=== PATIENT | female | born 1950 | race Caucasian/White ===

== ENCOUNTER → 2017-07-01 | Day surgery (SDC) | payer OTHER ==
[2017-06-09 11:19] VITALS: Ht 157.5 cm; Wt 91.8 kg
[~2017-07-01] VITALS: Ht 157.5 cm; Wt 91.8 kg
[~2017-07-01] MED LIST: ASCA500 PO; BUPR-79 PO; CALC600T9 PO; CHOL1000 PO; LIDOCAINE HCL 2% 2 ML VIAL (20MG/ML) ONE; METH-736 PO; MONT1TAB3 PO; MULT-190 PO; OMEG10007 PO; PROPOFOL IV EMULSION 10 MG/ML 20 ML VIAL IV ONE; SIMV20TA2 PO; ZINC1TAB4 PO
--- NOTE | 2017-07-01 13:52 | Endo History and Physical ---
History & Physical Date of Service: Jul 01, 2017. Chief Complaint: Screening Referring Physician: Braum History of Present Illness 67 yo CF who presents for screening colonoscopy. Past Surgical History Hx Cardiac Surgery: No Hx Internal Defibrillator: No Hx Pacemaker: No Hx Abdominal Surgery: Yes ([facility]) Hx of Implantable Prosthesis: No Hx Post-Op Nausea and Vomiting: No Hx Cancer Surgery: Yes (LT BREAST LUMPECTOMY) Hx Thoracic Surgery: No Hx Orthopedic: Yes (LT/RT FOOT TENDON TRANSFER, LT ACHILLES REPAIR, RT CTR, RT FOOT FUSION) Hx Urinary Tract Surgery: No Family History IBD Social History Smoking Status: Never Smoker Hx Substance Use: No Hx Alcohol Use: No Allergies Coded Allergies: Adhesives (Verified Allergy, Mild, SKIN PEELS, 06/09/17) NO KNOWN DRUG ALLERGIES (Verified Allergy, Unknown, ., 06/09/17) Current Medications Reported Home Medications Medications Dose Route/Sig Max Daily Dose Days Date Category Vitamin C (Ascorbic Acid) 500 Mg Tab 1 Tab PO DAILY 06/09/17 Reported Zinc (Zinc Gluconate) 100 Mg Tab 1 Tab PO DAILY 06/09/17 Reported Ocuvite Preservision (Multivitamins/Minerals) 1 Tab Tab 1 Tab PO DAILY 06/09/17 Reported Calcium + D (Calcium Carbonate-Vitamin D) 1 Tab Tab 1 Tab PO TID 06/09/17 Reported Vitamin D3 (Cholecalciferol) 1,000 Unit Tab 1 Tab PO 4XWK 06/09/17 Reported Msm (Methylsulfonylmethane) 1,000 Mg Tab 1 Tab PO TID 06/09/17 Reported Singulair (Montelukast Sodium) 10 Mg Tab 10 Mg PO HS 06/09/17 Reported [place]-3 (Fish Oil) 1 Ea Cap 1 Cap PO BID 09/12/10 Reported Wellbutrin Sr (Bupropion HCl) 150 Mg Ertab 150 Mg PO BID 09/12/10 Reported Zocor (Simvastatin) 20 Mg Tab 20 Mg PO HS 11/05/09 Reported Vital Signs Weight (Kilograms): 91.82 Height (Feet): 5 Height (Inches): 2 Date Time Temp Pulse Resp B/P (MAP) Pulse Ox O2 Delivery O2 Flow Rate FiO2 07/01/17 13:24 36.6 77 16 108/77 (87) 98 Room Air Physical Exam General Appearance: WD/WN, no apparent distress Respiratory/Chest: Auscultation: breath sounds normal Cardiovascular: Heart Auscultation: RRR Abdomen: Bowel Sounds: normal Inspection & Palpation: soft, non-distended, no tenderness, guarding & rebound Assessment and Plan Assessment: 67 yo CF who presents for screening colonoscopy. Plan: Proceed with colonoscopy.
--- NOTE | 2017-07-01 14:32 | Discharge Instructions ---
Endoscopy Patient Instructions Date / Procedure(s) Performed Jul 01, 2017. Colonoscopy Allergy Information Coded Allergies: Adhesives (Verified Allergy, Mild, SKIN PEELS, 06/09/17) NO KNOWN DRUG ALLERGIES (Verified Allergy, Unknown, ., 06/09/17) Discharge Date / Findings Jul 01, 2017. Colon polyp Internal hemorrhoids Medication Instructions OK to resume all medications today as prescribed Reported Home Medications Medications Dose Route/Sig Max Daily Dose Days Date Category Vitamin C (Ascorbic Acid) 500 Mg Tab 1 Tab PO DAILY 06/09/17 Reported Zinc (Zinc Gluconate) 100 Mg Tab 1 Tab PO DAILY 06/09/17 Reported Ocuvite Preservision (Multivitamins/Minerals) 1 Tab Tab 1 Tab PO DAILY 06/09/17 Reported Calcium + D (Calcium Carbonate-Vitamin D) 1 Tab Tab 1 Tab PO TID 06/09/17 Reported Vitamin D3 (Cholecalciferol) 1,000 Unit Tab 1 Tab PO 4XWK 06/09/17 Reported Msm (Methylsulfonylmethane) 1,000 Mg Tab 1 Tab PO TID 06/09/17 Reported Singulair (Montelukast Sodium) 10 Mg Tab 10 Mg PO HS 06/09/17 Reported [place]-3 (Fish Oil) 1 Ea Cap 1 Cap PO BID 09/12/10 Reported Wellbutrin Sr (Bupropion HCl) 150 Mg Ertab 150 Mg PO BID 09/12/10 Reported Zocor (Simvastatin) 20 Mg Tab 20 Mg PO HS 11/05/09 Reported Provider Instructions Activity Restrictions - No exercising or heavy lifting for 24 hours. - Do not drink alcohol the day of the procedure. - Do not drive a car or operate machinery until the day after the procedure. - Do not make any important decisions or sign important papers in 24 hours after the procedure. Following Day: - Return to full activity which may include returning to work/school. Diet Start your diet with liquids and light foods (jello, soup, juice, toast). Then eat your usual diet if not nauseated. Treatment For Common After Affects For mild abdominal pain, bloating, or excessive gas: - Rest - Eat lightly - Lie on right side Follow-Up Information Follow-up with Braum as scheduled Anesthesia Information What You Should Know You have had a procedure that required some medicine to reduce anxiety and discomfort. This treatment is called moderate sedation. After receiving the treatment, you may be sleepy, but you will be able to breathe on your own. The effects of the treatment may last for several hours. Follow these instructions along with Activity/Diet recommendations noted above: * Do NOT do anything where dizziness or clumsiness would be dangerous. * Rest quietly at home today, then you can be up and about tomorrow. * Have a responsible person stay with you the rest of today. * You may have had an I.V. today. If so, you may take the dressing off later today. Recommendations Call your doctor if: * Trouble breathing * Continuous vomiting for more than 24 hours * Temperature above 101 degrees * Severe abdominal pain or bloating * Pain not relieved by pain medicine ordered * There is increased drainage or redness from any incision * A large amount of rectal bleeding greater than 2-3 tablespoons. (If you had a polyp/s removed or have hemorrhoids, a small amount of blood - from the rectum is to be expected.) * You have any unanswered questions or concerns. IN THE EVENT OF A SERIOUS EMERGENCY, GO TO THE NEAREST EMERGENCY ROOM Your discharge instructions were prepared by provider Quinn Hussein. Patient Instructions Signature Page Marcy Paz Patient (or Guardian) Signature/Date: I have read and understand the instructions given to me by my caregivers. Caregiver/RN/Doctor Signature/Date: The above-named patient and/or guardian has received patient instructions on this date. + Original Patient Signature Page (only) stays with chart. Please make copy for patient.
--- NOTE | 2017-07-01 14:46 | Anesthesiology Progress Note ---
Anesthesia Post Op Note Date & Time Jul 01, 2017 at 14:46 Vital Signs Pain Intensity: 0 Vital Signs Past 12 Hours Date Time Temp Pulse Resp B/P (MAP) Pulse Ox O2 Delivery O2 Flow Rate FiO2 07/01/17 14:38 73 16 95/65 (75) 95 Room Air 07/01/17 13:24 36.6 77 16 108/77 (87) 98 Room Air Notes Mental Status: alert / awake / arousable, participated in evaluation Pt Amnestic to Procedure: Yes Nausea / Vomiting: adequately controlled Pain: adequately controlled Airway Patency, RR, SpO2: stable & adequate BP & HR: stable & adequate Hydration State: stable & adequate Anesthetic Complications: no major complications apparent
[2017-07-01 15:06] VITALS: BP 104/64; PULSE 70; O2SAT 92
--- NOTE | 2017-07-01 15:57 | GI REPORT ---
Procedure Date: 07/01/2017 1:54 PM Procedure: Colonoscopy Indications: Screening for colorectal malignant neoplasm Medicines: Monitored Anesthesia Care Complications: No immediate complications. Estimated Blood Loss: Estimated blood loss: none. Procedure: Pre-Anesthesia Assessment: - Prior to the procedure, a History and Physical was performed, and patient medications and allergies were reviewed. The patient's tolerance of previous anesthesia was also reviewed. The risks and benefits of the procedure and the sedation options and risks were discussed with the patient. All questions were answered, and informed consent was obtained. Prior Anticoagulants: The patient has taken no previous anticoagulant or antiplatelet agents. ASA Grade Assessment: II - A patient with mild systemic disease. After reviewing the risks and benefits, the patient was deemed in satisfactory condition to undergo the procedure. After I obtained informed consent, the scope was passed under direct vision. Throughout the procedure, the patient's blood pressure, pulse, and oxygen saturations were monitored continuously. The scope was introduced through the anus and advanced to the terminal ileum. The colonoscopy was performed without difficulty. The patient tolerated the procedure well. The quality of the bowel preparation was good. The terminal ileum, ileocecal valve, appendiceal orifice, and rectum were photographed. Findings: The perianal and digital rectal examinations were normal. A 5 mm polyp was found in the descending colon. The polyp was sessile. The polyp was removed with a hot snare. Resection and retrieval were complete. Non-bleeding internal hemorrhoids were found during retroflexion. The hemorrhoids were small. Impression: - One 5 mm polyp in the descending colon, removed with a hot snare. Resected and retrieved. - Non-bleeding internal hemorrhoids. Recommendation: - Resume previous diet. - Continue present medications. - Await pathology results. - Repeat colonoscopy for surveillance based on pathology results. - Return to primary care physician as previously scheduled. Quinn Hussein DO 07/01/2017 3:56:23 PM This report has been signed electronically. Note Initiated On: 07/01/2017 1:54 PM I attest to the content of the Intraoperative Record and orders documented therein, exceptions below
== END | disposition home or self-care (01) ==
LOC: C.GI 12:33
PROVIDERS: ATTEND Internal Medicine
DX: Z12.11 Encounter for screening for malignant neoplasm of colon (principal); D12.4 Benign neoplasm of descending colon; K64.8 Other hemorrhoids; Z85.3 Personal history of malignant neoplasm of breast; Z90.49 Acquired absence of other specified parts of digestive tract; Z79.899 Other long term (current) drug therapy; Z98.890 Other specified postprocedural states; E66.9 Obesity, unspecified; Z68.37 Body mass index [BMI] 37.0-37.9, adult